=== PATIENT | male | born 1940 | race Caucasian/White ===

== ENCOUNTER 2025-04-05 07:49 | Inpatient (IN) | payer MEDICARE, OTHER ==
[~2025-04-05] VITALS: Ht 180.3 cm; Wt 63.5 kg
[2025-04-05] VITALS (12 sets, daily range): BP systolic 110–152; BP diastolic 53–104; PULSE 69–104; RESP 15–22; TEMP 97.8–98.2; O2SAT 99–100
[2025-04-05 08:25] LABS: BASOPHILS % 0.3 % (0.0-1.0); EOSINOPHILS % 0.0 % (0.0-6.0); LYMPHOCYTES % 3.4 % (18.0-39.1); MONOCYTES % 7.4 % (4.4-11.3); NEUTROPHILS % 86.3 % (38.7-80.0); RED CELL DISTRIBUTION WIDTH 13.1 % (11.7-14.4)
[2025-04-05 09:09] LABS: EST GLOMERULAR FILTRATION RATE 16.0 ML/MIN (>=60)
[2025-04-05] MEDS: SODIUM CHLORIDE 0.9% 1000ML 1,000 ML IV ONE (09:18)
[2025-04-05 09:39] LABS: LEUKOCYTE ESTERASE ,URINE NEGATIVE (NEGATIVE); PROTEIN,URINE DIPSTICK 2+ (NEGATIVE); URINE UROBILINOGEN 0.2 mg/dL (0.2 - 1)
[2025-04-05] MEDS ORDERED: MAGNESIUM SULF 1GRAM/DEXTROSE 100 ML IV PRN (10:00)
[2025-04-05] MEDS ORDERED: DEXTROSE 5%/0.45% SOD CHL 1,000 ML IV SCH (10:00)
[2025-04-05] MEDS ORDERED: POTASSIUM CHLORIDE 20MEQ/100ML 200 ML IV PRN (10:00)
[2025-04-05] MEDS ORDERED: POTASSIUM CHLORIDE 20MEQ/100ML 100 ML INJ PRN (10:00)
[2025-04-05 10:36] LABS: EPITHELIAL CELLS,URINE RARE /LPF
[2025-04-05] MEDS: INSULIN REGULAR, HUMAN 100 UNIT/1 ML IV ONE (10:41)
[2025-04-05] MEDS: LACTATED RINGER'S 1,000 ML IV ONE (10:45)
[2025-04-05] MEDS ORDERED: SODIUM CHLORIDE FLUSH 10 ML SYR INJ PRN (10:45)
[2025-04-05] MEDS ORDERED: ONDANSETRON HCL INJ 2MG/ML 2ML 2 MG/ML VIAL IV PRN ×2 (10:45→16:45)
[2025-04-05] MEDS: INSULIN REGULAR, HUMAN 3ML VL 100 UNIT in SODIUM CHLORIDE 0.9% 99 ML IV SCH ×2 (11:28→15:39)
[2025-04-05] MEDS: SODIUM CHLORIDE 0.9% 1000ML 1,000 ML IV SCH ×2 (12:33→17:29)
[2025-04-05 14:39] LABS: EST GLOMERULAR FILTRATION RATE 21.0 ML/MIN (>=60)
[2025-04-05] MEDS ORDERED: DEXTROSE 50% SYRINGE 50 ML IV PRN ×2 (15:00→16:45)
[2025-04-05] MEDS ORDERED: POTASSIUM CHLORIDE 20MEQ/100ML 100 ML IV PRN (15:15)
[2025-04-05] MEDS ORDERED: POTASSIUM CHLORIDE 20 MEQ TAB CR PO PRN (16:45)
[2025-04-05] MEDS ORDERED: DOCUSATE SODIUM 100 MG CAP PO PRN (16:45)
[2025-04-05] MEDS ORDERED: ACETAMINOPHEN 325 MG TAB PO PRN (16:45)
[2025-04-05] MEDS ORDERED: MELATONIN 5 MG TABLET PO PRN (16:45)
[2025-04-05] MEDS ORDERED: SIMETHICONE 80 MG CHEW PO PRN (16:45)
[2025-04-05] MEDS ORDERED: DIPHENHYDRAMINE HCL 25 MG CAP PO PRN (16:45)
[2025-04-05] MEDS ORDERED: LIDOCAINE 4% PATCH TP PRN (16:45)
[2025-04-05] MEDS: MUPIROCIN 2% OINT 22 GM TUBE TOP SCH (17:00)
[2025-04-05] MEDS: ALBUMIN 5% 0.05 GM/ML BTL IV STA (17:30)
[2025-04-05] MEDS: ENOXAPARIN 30 MG/0.3 ML SYR SC SCH (17:30)
[2025-04-05 19:55] LABS: EST GLOMERULAR FILTRATION RATE 25.0 ML/MIN (>=60)
[2025-04-06] VITALS (17 sets, daily range): BP systolic 118–196; BP diastolic 66–114; PULSE 74–88; RESP 12–23; TEMP 97.6–97.9; O2SAT 98–100
[2025-04-06 05:36] LABS: BASOPHILS % 0.5 % (0.0-1.0); EOSINOPHILS % 0.7 % (0.0-6.0); LYMPHOCYTES % 12.3 % (18.0-39.1); MONOCYTES % 7.6 % (4.4-11.3); NEUTROPHILS % 77.8 % (38.7-80.0); RED CELL DISTRIBUTION WIDTH 13.2 % (11.7-14.4)
[2025-04-06 06:05] LABS: EST GLOMERULAR FILTRATION RATE 27.0 ML/MIN (>=60)
[2025-04-06 06:27] LABS: CHOL/HDL RATIO 2.4 (3.9-4.7); LDL CHOLESTEROL 55.0 MG/DL (60-130); PHOSPHORUS 2.8 MG/DL (2.3-4.7)
[2025-04-06] MEDS: PANTOPRAZOLE SOD 40 MG TABEC PO SCH (07:18)
[2025-04-06] MEDS ORDERED: DEXTROSE 50% SYRINGE 50 ML IV PRN (11:00)
[2025-04-06] MEDS: POTASSIUM CHLORIDE 20 MEQ TAB CR PO ONE (11:36)
[2025-04-06] MEDS: INSULIN REGULAR, HUMAN 100 UNIT/1 ML SQ SCH (11:38)
[2025-04-07] VITALS (8 sets, daily range): BP systolic 137–156; BP diastolic 63–78; PULSE 76–90; RESP 16–21; TEMP 97.7–98.5; O2SAT 97–100
[2025-04-07 08:31] LABS: BASOPHILS % 0.6 % (0.0-1.0); EOSINOPHILS % 3.4 % (0.0-6.0); LYMPHOCYTES % 17.9 % (18.0-39.1); MONOCYTES % 7.0 % (4.4-11.3); NEUTROPHILS % 67.7 % (38.7-80.0); RED CELL DISTRIBUTION WIDTH 13.5 % (11.7-14.4)
[2025-04-07 08:53] LABS: EST GLOMERULAR FILTRATION RATE 38.0 ML/MIN (>=60)
[2025-04-07] MEDS: METOPROLOL SUCCINATE 25 MG TAB XL PO SCH (11:49)
[2025-04-07] MEDS: ASPIRIN 81 MG ENTERIC COATED PO SCH (11:49)
[2025-04-07] MEDS ORDERED: ALPRAZOLAM 1 MG TAB PO PRN (12:45)
[2025-04-07] MEDS: INSULIN GLARGINE 100 UNITS/ML VIAL SQ SCH (21:27)
[2025-04-08] VITALS (8 sets, daily range): BP systolic 147–167; BP diastolic 65–84; PULSE 68–83; RESP 16–20; TEMP 97.3–99.1; O2SAT 95–100
[2025-04-08 06:08] LABS: BASOPHILS % 0.8 % (0.0-1.0); EOSINOPHILS % 6.2 % (0.0-6.0); LYMPHOCYTES % 17.3 % (18.0-39.1); MONOCYTES % 10.0 % (4.4-11.3); NEUTROPHILS % 60.7 % (38.7-80.0); RED CELL DISTRIBUTION WIDTH 13.4 % (11.7-14.4)
[2025-04-08 06:21] LABS: EST GLOMERULAR FILTRATION RATE 48.0 ML/MIN (>=60)
[2025-04-09] VITALS (7 sets, daily range): BP systolic 137–184; BP diastolic 58–82; PULSE 64–74; RESP 17–22; TEMP 97.7–98.3; O2SAT 90–100
[2025-04-10] VITALS: BP 163/67; PULSE 77; RESP 20; TEMP 98.2; O2SAT 95
[2025-04-10 04:00] VITALS: BP 169/74; PULSE 80; RESP 20; TEMP 97.8; O2SAT 100
[2025-04-10 08:15] VITALS: BP 163/67; PULSE 88; RESP 20; TEMP 97.2; O2SAT 100
[2025-04-10 08:18] LABS: BASOPHILS % 1.0 % (0.0-1.0); EOSINOPHILS % 3.8 % (0.0-6.0); LYMPHOCYTES % 16.2 % (18.0-39.1); MONOCYTES % 9.6 % (4.4-11.3); NEUTROPHILS % 63.9 % (38.7-80.0); RED CELL DISTRIBUTION WIDTH 13.5 % (11.7-14.4)
[2025-04-10 08:32] LABS: EST GLOMERULAR FILTRATION RATE 50.0 ML/MIN (>=60)
[2025-04-10 09:14] VITALS: BP 163/67; PULSE 88; RESP 20; TEMP 98.2; O2SAT 98
[2025-04-10 11:59] LABS: BAND NEUTROPHILS % (MANUAL) 3 %; BASOPHILS % (MANUAL) 2 % (0-1.5); EOSINOPHILS % (MANUAL) 1 % (0-7); LYMPHOCYTES % (MANUAL) 13 % (19-48); MONOCYTES % (MANUAL) 5 % (3.4-9.0); NEUTROPHILS % (MANUAL) 76 % (40-74); PLATELET ESTIMATE ADEQUATE
[2025-04-10 12:00] LABS: PLATELET MORPHOLOGY COMMENT FEW GIANT; RBC MORPHOLOGY COMMENT NORMAL
[2025-04-10 12:10] VITALS: BP 148/69; PULSE 89; RESP 19; TEMP 98.1; O2SAT 99
[2025-04-10] MEDS ORDERED: FUROSEMIDE INJ 10 MG/ML 4 ML VIAL IV ONE (15:15)
[2025-04-10 16:48] VITALS: BP 140/61; PULSE 83; RESP 20; TEMP 98; O2SAT 99
== END 2025-04-10 16:20 | disposition left against medical advice (07) | DRG 871 ==
LOC: ER 07:51 → ERHOLD 10:45 → ICU 16:15 → MED/SURG2 04-06 18:13
PROVIDERS: ADMIT Internal Medicine; ATTEND Internal Medicine
PROC: 3E0333Z Introduction of Anti-inflammatory into Peripheral Vein, Percutaneous Approach (ICD-10-PCS; principal; 2025-04-05)
DX: A41.9 Sepsis, unspecified organism (principal); E11.00 Type 2 diabetes mellitus with hyperosmolarity without nonketotic hyperglycemic-hyperosmolar coma (NKHHC); N17.0 Acute kidney failure with tubular necrosis; E11.10 Type 2 diabetes mellitus with ketoacidosis without coma; G93.41 Metabolic encephalopathy; M62.82 Rhabdomyolysis; I50.22 Chronic systolic (congestive) heart failure; N39.0 Urinary tract infection, site not specified; R65.20 Severe sepsis without septic shock; E11.22 Type 2 diabetes mellitus with diabetic chronic kidney disease; N18.30 Chronic kidney disease, stage 3 unspecified; D63.1 Anemia in chronic kidney disease; E86.0 Dehydration; J44.9 Chronic obstructive pulmonary disease, unspecified; M47.812 Spondylosis without myelopathy or radiculopathy, cervical region; E04.1 Nontoxic single thyroid nodule; R91.1 Solitary pulmonary nodule; M16.0 Bilateral primary osteoarthritis of hip; Z90.49 Acquired absence of other specified parts of digestive tract; Z88.5 Allergy status to narcotic agent
CPT/HCPCS: 36415; 70450; 71045; 72125; 73521; 76770; 80048; 80053; 80061; 80320; 81001; 81003; 82140; 82550; 82553; 82948; 83036; 83605; 83735; 84100; 84443; 85025; 87040; 87086; 93005; 93306; 99284; J0696; J1650; J1815; J2470; J2543; J7030; J7050